=== PATIENT | female | born 1990 | race Caucasian/White ===

== ENCOUNTER 2025-01-05 19:15 | Emergency (ER) | payer SELFPAY ==
[~2025-01-05] VITALS: Ht 172.7 cm; Wt 90.9 kg
[2025-01-05 19:23] VITALS: TEMP 98.5
[2025-01-05 19:52] LABS: APPEARANCE,URINE HAZY (CLEAR); BILIRUBIN,URINE NEGATIVE (NEGATIVE); COLOR,URINE YELLOW (YELLOW); GLUCOSE, URINE (UA) NEGATIVE (NEGATIVE); KETONES,URINE NEGATIVE (NEGATIVE); LEUKOCYTE ESTERASE ,URINE MODERATE (NEGATIVE); NITRATE,URINE POSITIVE (NEGATIVE); OCCULT BLOOD,URINE NEGATIVE (NEGATIVE); PH,URINE 5.5 (5.0-8.0); PROTEIN,URINE TRACE mg/dL (NEGATIVE); UROBILINOGEN,URINE <=1.0 mg/dL (<=1.0)
[2025-01-05 20:16] LABS: BACTERIA,URINE Moderate /HPF (None Seen); RBC,URINE 0-2 /HPF (0-2)
[2025-01-05 20:17] LABS: SQUAMOUS EPITHELIAL CELL,UR Few /LPF (None Seen)
[2025-01-05 20:25] LABS: HCG,QUAL URINE NEGATIVE (NEGATIVE)
[2025-01-05 21:17] VITALS: BP 108/62; PULSE 82; RESP 18; O2SAT 99
[2025-01-05] MEDS ORDERED: CEPH-558 PO (21:19)
[2025-01-05] MEDS ORDERED: DOXY-354 PO (21:19)
[2025-01-05] MEDS ORDERED: ACET-3385 PO (21:19)
[2025-01-05] MEDS ORDERED: IBUP-1492 PO (21:19)
[2025-01-05] MEDS: LIDOCAINE/PF 1% 2 ML VIAL IM ONE (21:42)
[2025-01-05] MEDS: DOXYCYCLINE HYCLATE 100 MG TABLET PO ONE (21:42)
[2025-01-05] MEDS: CefTRIAXone SODIUM 1 GM/VIAL IM ONE (21:43)
== END 2025-01-05 22:10 | disposition home or self-care (01) ==
LOC: EMS 19:15
DX: N12 Tubulo-interstitial nephritis, not specified as acute or chronic (principal); M54.50 Low back pain, unspecified
CPT/HCPCS: 99283; 81001; 84703; 87086; 87491; 87591; 96372; J0696; J3490; 87077; 87186